=== PATIENT | female | born 1970 | race Caucasian/White ===

== ENCOUNTER 2019-01-04 10:33 | Inpatient (IN) | payer BC ==
[~2019-01-04] VITALS: Ht 162.6 cm; Wt 98.3 kg
[2019-01-04 15:21] VITALS: BP 110/61; PULSE 87; TEMP 97.5
[2019-01-04] MEDS ORDERED: TYLENOL 325MG325 MG PO (15:41)
[2019-01-04] MEDS ORDERED: NEURONTIN300 MG/CAP PO (15:42)
[2019-01-04] MEDS ORDERED: FLEXERIL5 MG PO (15:42)
[2019-01-04] MEDS ORDERED: ROXICODONE 55 MG/TAB PO (15:44)
[2019-01-04] MEDS ORDERED: ELIQUIS 2.5 PO (15:46)
[2019-01-04] MEDS ORDERED: TUMS500 MG PO (15:46)
[2019-01-04] MEDS ORDERED: OS-CAL 500 + D1 TAB PO (15:48)
[2019-01-04] MEDS ORDERED: SENNA-S 50 MG-81 TAB PO (15:49)
[2019-01-04] MEDS ORDERED: NATURAL IRON65 MG PO (15:50)
[2019-01-04] MEDS ORDERED: LEVOXYL0.1 MG PO (15:51)
[2019-01-04] MEDS ORDERED: ASPERCREME1 EACH TP (15:52)
[2019-01-04] MEDS ORDERED: MILK OF MA1200 MG/5 PO (15:53)
[2019-01-04] MEDS ORDERED: CENTRUM SILVER1 TAB PO (15:54)
[2019-01-04] MEDS ORDERED: LASIX 20MG TABL20 MG (15:55)
[2019-01-04 17:37] VITALS: BP 119/61; PULSE 86; TEMP 98
--- NOTE | 2019-01-04 18:24 | NUR ---
Report from Erendira at [facility], pt arrived via [place] [id number] transportation with pt's son Jason. Pt toileted, returned to recliner, signed consents, completed family hx and suicide risk and verified code status. Briefed on IPR routine and given welcome folder. Report to SANDI Johnson.
--- NOTE | 2019-01-04 21:00 | NUR ---
PT FRUSTRATED. CANT GET COMFORTABLE. DECLINED PAIN MED. ASSISTED TO BR WITH WALKER. SLOW SL UNSTEADY GAIT. VOIDED W/O DIFFICULTY. TRANSFERRED TO RECLINER. ICE PACK TO RT HIP. ELEVATED FEET. PAIN LEVEL 3/10 TO LT HIP AND BELOW LT SHOUDER BLADE. PT EDUCATION RE: PAIN SCALE. PT REPORTS PAIN AT LEVEL 6/10. SEE MAR FOR PAIN MEDS GIVEN. 5 PAGE ASSESS FORM COMPLETED.
--- NOTE | 2019-01-04 22:30 | NUR ---
PT GETTING SLEEPY. REPORTS PAIN MUCH BETTER. ASSISTED TO BED FROM RECLINER W/ WALKER. NEEDS CUING ON SAFETY. SCD'S ON. CALL LIGHT IN REACH. BED ALARM SET. ICE PACK TO LT HIP.
[2019-01-05 05:25] VITALS: BP 108/65; PULSE 76; TEMP 97.6
[2019-01-05 15:45] VITALS: BP 102/56; PULSE 84; TEMP 98.5
[2019-01-05 17:52] VITALS: BP 117/47; PULSE 81; TEMP 97.6
--- NOTE | 2019-01-05 19:24 | NUR ---
Pt amb barbosa with walker and CGA, stiff but steady. Bruising to pelvis and thighs. Dr. Valiente saw, ordered sleep aid and labs tomorrow. Quinn marte PRN and scheduled meds for pain. , son, and [id number] visited this evening. Pt follows gluten-free diet. Needs reminded to make out menus for tomorrow. Report to SANDI Johnson
--- NOTE | 2019-01-05 21:00 | NUR ---
PT SITTING IN RECLINER. HAVING MILD PAIN TO LT HIP AND "SCIATIC NERVE PAIN". SCHEDULED TYLENOL GIVEN WILL REASSESS AT BED TIME. ANXIOUS GENERALALIZED AFFECT. INTERESTED IN CARE- ASKS QUESTIONS. MOTIVATED TO GET BETTER.
[2019-01-06 05:12] VITALS: BP 117/62; PULSE 78; TEMP 98.5
--- NOTE | 2019-01-06 07:00 | NUR ---
Report received from SANDI Johnson. pT in recliner at side of bed resting. Denies needs, will continue to monitor.
[2019-01-06 07:37] LABS: MEAN CELL VOLUME 97 fl (80.0-100.0); MEAN CORPUSCULAR HGB CONC 32 g/dl (33.0-37.0); MEAN PLATELET VOLUME 8.9 fl (7.4-10.4); PLATELET COUNT 293 K/mm3 (130-400); RED BLOOD COUNT 3.15 M/mm3 (4.10-5.30); REDCELL DISTRIBUTION WIDTH-CV 13.7 % (11.5-14.5)
[2019-01-06 07:44] LABS: HEMATOCRIT 30.6 % (37.0-47.0); HEMOGLOBIN 9.7 g/dl (12.5-16.0); MEAN CORPUSCULAR HEMOGLOBIN 31 pg (27.0-31.0)
[2019-01-06 07:47] LABS: ALBUMIN 3.4 gm/dL (3.5-5.0); BILIRUBIN,TOTAL 0.8 mg/dL (0.0-1.0); CREATININE, serum 0.78 (0.52-1.25); MAGNESIUM 2.4 mg/dL (1.6-2.3); POTASSIUM 4.3 mmol/L (3.4-5.0); TOTAL PROTEIN 6.4 gm/dL (6.4-8.2)
[2019-01-06 08:34] LABS: EOSINOPHIL 6 % (0-4); LYMPHOCYTE 34 % (20.0-51.0); MYELOCYTE 3 % (0-0); NEUTROPHILS 54 % (42.0-75.2); PLATELET ESTIMATE NORMAL (NORMAL)
[2019-01-06 08:35] LABS: HYPOCHROMIA 2+
--- NOTE | 2019-01-06 10:08 | NUR ---
Assessment charted. Pt has some pain in side and groin area. PRN pain meds given to help prevent pain during therapy. Bruising diffuse in abd and upper thighs, and r back of calf, healing well. Pt denies needs, wants to get out of room, will discuss with PT. Pt in wheelchair with legs off and just getting around floor that way to help alleviate the cabin fever. Will continue to monitor.
--- NOTE | 2019-01-06 10:44 | NUR ---
Initial visit; Patient thanked Composition Teacher for looking in on her and offering God's blessings and keping her in Composition Teacher's prayers. Composition Teacher will follow up.
[2019-01-06 15:18] VITALS: BP 102/58; PULSE 84; TEMP 97.9
--- NOTE | 2019-01-06 18:05 | NUR ---
Pt has had good afternoon. Did c/o increased pain and swelling to R hip after showering with OT today. Assessed and called Dr. Valiente who came to see patient and assess. Family at bedside this afternoon to visit with patient and did assist with pt ambulating in halls with gait belt and walker, per Ac in PT this was okay. Pt doing well, denies any real pain. Ice pack to R hip. SCDs in place. Call light in reach. Will give bedside shift report to nightshift nurse who will resume care.
--- NOTE | 2019-01-06 21:20 | NUR ---
Patient assessed at this time. Sleepy, easily awakens. Alert and oriented x 4, and able to make needs known. Denies having pain and discomfort at this time. Given scheduled APAP, Neurontin, and Flexeril per orders. Told patient to let this nurse if she needs any pain medications, and voiced understanding. Refused Lidocaine patch tonight, stating she didn't have it on last night and she did not notice any difference. LS CTA. Respirations even and unlabored. Denies SOB, dyspnea, and cough. HRR. Denies chest pain. Capillary refill < 3 seconds. Non-tenting skin turgor. BSAx4. Abdomen soft and non-tender. Did not want to take scheduled colace 200 mg tonight since she had a BM. Did take the senna/colace. Bruising continues to abdomen, right flank, right buttock to calf, and bilaterally inner thighs. 1+ edema BLE. Denies having any questions, needs, or concerns at this time. In recliner watching TV at this time. Call light is within reach.
--- NOTE | 2019-01-06 22:00 | NUR ---
Patient assisted into bed at this time. Denies having pain and discomfort. Voices no questions, needs, or concerns at this time. Resting in bed with call light within reach.
--- NOTE | 2019-01-06 23:18 | NUR ---
Patient assisted to bathroom. Complained of pain to left hip. Ambulated with walker, gait belt, and one assist down hallway and back to room again. Given scheduled APAP, PRN Roxicodone 5 mg, and ice pack placed to left hip area as requested for pain. Denies having any other questions, needs, or concerns at this time. Call light is within reach.
--- NOTE | 2019-01-07 00:16 | NUR ---
Continues to have some pain to left hip area. Assisted to bathroom as requested. Afterwards assisted into recliner as requested. Denies wanting anymore pain medication at this time. Encouraged to let staff know if she changes her mind, and voiced understanding. In recliner at this time. Call light is within reach.
[2019-01-07 04:58] VITALS: BP 111/63; PULSE 65; TEMP 98.3
--- NOTE | 2019-01-07 06:10 | NUR ---
Patient assisted back to the bathroom and into bed at approximately 0330. Slept until approximately 0600, called to go to the bathroom. Given medications at that time. Assisted into recliner as requested. Voices no other questions, needs, or concerns at this time. In recliner with call light within reach.
--- NOTE | 2019-01-07 10:10 | NUR ---
Patient was a SBA with ambulating to and from bathroom. She used a walker and did not use the BSC. Patient wiped self and was continent of bladder. Patient had some generalized pain received her morning scheduled Tylenol and did request prn pain med when working with PT today. Patient tolerated diet well this morning and ate 100% of her meal and was independent with eating and grooming this morning.
--- NOTE | 2019-01-07 16:26 | NUR ---
Patient ate all her lunch today, she refused her afternoon scheduled Tylenol, due to very limited pain while not doing therapies this afternoon. Patient currently resting in recliner with family by her side.
[2019-01-07 18:22] VITALS: BP 103/61; PULSE 80; TEMP 97.2
--- NOTE | 2019-01-07 22:30 | NUR ---
Shift assessment complete. Patient in chair, putting together a puzzle. States 3/10 pain, prn pain medication given. Denies further needs at this time. Will continue to monitor.
[2019-01-08 04:38] VITALS: BP 111/61; PULSE 81; TEMP 98.4
--- NOTE | 2019-01-08 04:58 | NUR ---
Patient awake, in room. Stated she was feeling restless, so we went for a long walk. States pain 08/14, declined pain medication. Also stated that she wanted a break from the SCD's after wearing them all night. SCD's not placed back on after walk per pt request. Denies further needs at this time. Will continue to monitor.
--- NOTE | 2019-01-08 09:29 | NUR ---
Patient resting in bed at this time. Patient ate 100% of breakfast this morning. She was independent on grooming and eating. Patient reported that pain was 2/10 and only wanted scheduled tylenol this morning. Denied questions at this time.
[2019-01-08 18:30] VITALS: BP 101/55; PULSE 81; TEMP 97.5
[2019-01-09 06:15] VITALS: BP 93/57; PULSE 74; TEMP 98.2
--- NOTE | 2019-01-09 08:20 | NUR ---
On Saturday 01/06, SW met with patient for initial intake. Prior to admission, patient lived independently at home wit her . Patient's PCP is Dr Galilea Eller. Prior to admission, patient was independent with all ADLs and did not use any DME or home health services. Patient reports when she is discharged from rehab, she plans to temporarily live with her sister in law. Patient does not have a DPOA-HC and is not interesed in completing one at this time. SW will continue to follow.
--- NOTE | 2019-01-09 09:37 | NUR ---
Report from SANDI Johnson. Pt to chair for breakfast, calls to toilet, amb with walker and gait belt. Takes pills whole with water. A&O, pleasantly cooperative. Declines SCDs and lidocaine patch at this time. Shantal prior to PT.
--- NOTE | 2019-01-09 12:20 | NUR ---
To chair for lunch.
--- NOTE | 2019-01-09 14:37 | NUR ---
PRIYANKA followed up with patient after the weekend. PRIYANKA informed patient that she is scheduled to discharge on Thursday 01/11 with outpatient PT. Patient reports she would like to be scheduled with [facility] for therapy. PRIYANKA informed nurse. PRIYANKA also scheduled a family meeting for tomorrow 01/10 at 1pm.
[2019-01-09 15:34] VITALS: BP 103/54; PULSE 88; TEMP 98.2
--- NOTE | 2019-01-09 15:55 | NUR ---
Pt's niece visiting and amb with pt in barbosa with armando
--- NOTE | 2019-01-09 20:32 | NUR ---
Made mod I in , left messages for f/u appts. Report to ASNDI Johnson.
--- NOTE | 2019-01-09 20:33 | NUR ---
Pt not wearing SCDs during day as she has been made Mod I in rm and walks frequently about.
--- NOTE | 2019-01-09 21:00 | NUR ---
PT SITTING ON SIDE OF BED. A&O. REVIEWED MOD I IN ROOM/HALLWAY WITH WALKER STATUS. BRUISING LIGHT PUPLE AND YELLOW. RT THIGH REMAINS SWOLLEN. LT HIP : SCIATICA" CAUSES MOST DEGREE OF DISCOMFORT. ONLY WANTS SCHEDULED TYLENOL, NEUROTIN AT THIS TIME.
[2019-01-10 05:05] VITALS: BP 99/56; PULSE 82; TEMP 99
--- NOTE | 2019-01-10 08:20 | NUR ---
Patient just left for PT this morning. Patient ate all her breakfast this morning. She was independent with her grooming and eating. Patient in pleasent mood. Reporting pain 2/10 to hip and given scheduled tylenol.
--- NOTE | 2019-01-10 13:42 | NUR ---
Patient ate all her lunch this afternoon. She walked the hallway of [facility] prior to therapy this afternoon. Patient reporting pain 1-2/10, but refused any pain meds at this time.
--- NOTE | 2019-01-10 14:42 | NUR ---
SW attended a family conference with patient's and sister in law. Also present was IPR director, PT, OT, and ST. IPR director explained the purpose of the family conference. PT, OT, and ST explained what they have been working on with patient since admission. The IPR team all agree that patient is ready to discharge tomorrow 01/11 and receive outpatient PT. Patient will live with her sister in law for a few weeks before returning home. Patient reports she has a four wheeled walker that her mom will bring and her sister in law reports she has a shower chair for patient to use. Patient's family did not have any further questions.
[2019-01-10 15:56] VITALS: BP 103/63; PULSE 88; TEMP 98.4
--- NOTE | 2019-01-10 17:30 | NUR ---
Patient attended all therapies today. She was independent with eating, transferring, getting dressed and toileting. Patient ate all her meals today. She took scheduled tylenol for pain management. Patient still has some swelling to her rt hip, thigh and lower leg and ankle. Patient has been elevating this leg when in recliner and in bed. Patient indpendent on grooming today. The bruising is light yellow on her hip area now.
--- NOTE | 2019-01-10 20:30 | NUR ---
Patient walks in corridor and views water fountain then back to room with walker accompanied by Nurse. Gait steady. HS meds all reviewed and given. Takes enlive strawberry for a snack. Reports minimal pain at this time. Has 1-2 + edema to RLE and states will wear SDCs tonight and then remove if wakes up in the middle of the night. Requests nurse not wake her for 0000 tylenol.
--- NOTE | 2019-01-10 23:30 | NUR ---
Has been resting quietly in bed. Respirations with ease.
--- NOTE | 2019-01-11 03:15 | NUR ---
Patient rests quietly in bed. Respirations with ease.
[2019-01-11 05:06] VITALS: BP 109/64; PULSE 76; TEMP 98.3
--- NOTE | 2019-01-11 06:22 | NUR ---
Awakened for am meds. Reviewed and given. States yes to getting sleep "once I finally fell asleep around 2300".
--- NOTE | 2019-01-11 09:03 | NUR ---
Patient resting in recliner at this time, independent in her room with walker. Independent with eating and grooming. Patient reports right hip pain of 2/10 this morning and given scheduled tylenol. Will continue to monitor.
[2019-01-11] MEDS ORDERED: FERRO-TIME325 MG PO (09:25)
[2019-01-11] MEDS ORDERED: ELIQUIS 2.5 PO (09:25)
[2019-01-11] MEDS ORDERED: FLEXERIL5 MG PO (09:25)
[2019-01-11] MEDS ORDERED: ROXICODONE 55 MG/TAB PO (09:27)
[2019-01-11] MEDS ORDERED: NEURONTIN300 MG/CAP PO (09:35)
--- NOTE | 2019-01-11 10:29 | NUR ---
Follow-up visit; Patient thanked Blood Donor Recruiter for stopping in and wishing her well and offering God's blessings as she discharges from the hospital.
--- NOTE | 2019-01-11 12:43 | NUR ---
Patient is resting in recliner at this time awaiting discharge. Patient's mother is currently visiting with family at this time. Patient was independent with grooming, eating, and transferring.
--- NOTE | 2019-01-11 14:10 | NUR ---
Patient Health Summary, Discharge Summary, and Home Meds were printed and reviewed with patient and family member. Stressed importance of follow up appointments. Belongings gathered by RN/Ivone including glasses, purse, DL, Med Card, Cell phone, Bible and dairy equipment installer. Patient transported via walker by GENERAL CAR YARD SUPERVISOR/Horacio and seatbelted for ride home. Patient denied questions.
--- NOTE | 2019-01-11 15:37 | NUR ---
Patient requested that this nurse call to get a copy of CT Brain Scan from [facility]. This nurse called [phone] Radiology Department and requested that a copy of patient's recent CT Brain Scan be sent to Dr. Arango's office. Attn: Dr. Adorno, [address], [place] [address]. Radiology stated that they would be mailing it out tomorrow 01/12/19. Patient was called and informed about this. Patient will call [facility] to get copy of recent CT scan from that location and have them mail that CD to her.
--- NOTE | 2019-01-11 15:48 | NUR ---
Faxed PT referral to [phone] - Out patient PT at [place], [place] phone number [phone].
== END 2019-01-11 14:10 | disposition home or self-care (01) | DRG 947 ==
PROVIDERS: ADMIT Internal Medicine
DX: R53.81 Other malaise (principal); I60.7 Nontraumatic subarachnoid hemorrhage from unspecified intracranial artery; S22.42XD Multiple fractures of ribs, left side, subsequent encounter for fracture with routine healing; S32.592D Other specified fracture of left pubis, subsequent encounter for fracture with routine healing; S32.10XD Unspecified fracture of sacrum, subsequent encounter for fracture with routine healing; E03.9 Hypothyroidism, unspecified; G47.00 Insomnia, unspecified; D64.9 Anemia, unspecified; E55.9 Vitamin D deficiency, unspecified; K90.0 Celiac disease; Z79.01 Long term (current) use of anticoagulants; Z79.891 Long term (current) use of opiate analgesic; Z88.1 Allergy status to other antibiotic agents; Z88.0 Allergy status to penicillin; Z88.2 Allergy status to sulfonamides
CPT/HCPCS: 99222-AI; 99232-AI; 99239